=== PATIENT | female | born 1985 | race Caucasian/White ===

== ENCOUNTER 2024-03-31 17:48 | Emergency (ER) | payer OTHER | END 2024-03-31 18:57 | disposition home or self-care (01) | LOC: MW.ED 17:48 | DX: S06.0X0A Concussion without loss of consciousness, initial encounter (principal); S80.12XA Contusion of left lower leg, initial encounter; V49.40XA Driver injured in collision with unspecified motor vehicles in traffic accident, initial encounter; Y92.410 Unspecified street and highway as the place of occurrence of the external cause; Z75.8 Other problems related to medical facilities and other health care | CPT/HCPCS: 99283; 99284 ==